=== PATIENT | female | born 1970 | race Caucasian/White ===

== ENCOUNTER 2024-04-10 17:58 | Inpatient (IN) | payer MEDICAID ==
[~2024-04-10] VITALS: Ht 152.4 cm; Wt 59.0 kg
[2024-04-10 18:18] VITALS: BP 112/82; PULSE 69; RESP 18; TEMP 98.3; O2SAT 97
[2024-04-10] MEDS: NACL 0.9% 1,000 ML IV ONE (18:58)
[2024-04-10] MEDS: ONDANSETRON 4 MG/2 ML VIAL IVP ONE (18:58)
[2024-04-10] MEDS: MORPHINE SULFATE 4 MG/ML SYR IVP ONE ×2 (18:59→22:40)
[2024-04-10 19:07] LABS: BASOPHILS % (AUTO) 0.3 % (0.0-2.0); EOSINOPHILS # (AUTO) 0.1 K/uL (0-0.4); HEMATOCRIT 44.4 % (36-48); HEMOGLOBIN 14.9 g/dL (12.0-16.0); LYMPHOCYTES # (AUTO) 1.9 K/uL (2.5-16.5); LYMPHOCYTES % (AUTO) 25.4 % (20.5-51.1); MEAN CORPUSCULAR HEMOGLOBIN 31 pg (27-31); MEAN CORPUSCULAR HGB CONC 34 g/dL (33-37); MEAN CORPUSCULAR VOLUME 92.2 fL (80-94); MONOCYTES # (AUTO) 0.4 K/uL (0.8-1.0); MONOCYTES % (AUTO) 5.9 % (1.7-9.3); NEUTROPHILS # (AUTO) 4.8 K/uL (1.8-7.7); NEUTROPHILS % (AUTO) 66.4 % (42.2-75.2); PLATELET COUNT (AUTO) 216 K/uL (140-450); RED BLOOD CELL COUNT(AUTO) 4.82 MIL/uL (4.20-5.40); RED CELL DISTRIBUTION WIDTH 14.1 % (11.6-13.7); WHITE BLOOD COUNT (AUTO) 7.3 K/uL (4.8-10.8)
[2024-04-10 19:08] LABS: APPEARANCE,URINE CLEAR (CLEAR); BILIRUBIN,URINE NEGATIVE (NEGATIVE); BLOOD, URINE 2+ (NEGATIVE); COLOR,URINE YELLOW (YELLOW); LEUKOCYTE ESTERASE ,URINE NEGATIVE (NEGATIVE); NITRITE, URINE NEGATIVE (NEGATIVE); PROTEIN,URINE NEGATIVE (NEGATIVE); UGLUCOSE NEGATIVE (NEGATIVE); UROBILINOGEN,URINE 0.2 EU/dL (0.2 - 1)
[2024-04-10 19:22] LABS: ANION GAP 8.9 (8-16); CARBON DIOXIDE 29.2 mmol/L (21-32); CREATININE 0.5 mg/dL (0.6-1.3); POTASSIUM 3.1 mmol/L (3.5-5.1)
[2024-04-10 19:26] LABS: ALBUMIN 3.4 g/dL (3.4-5.0); BILIRUBIN,DIRECT 0.1 mg/dL (0.0-0.3); TOTAL BILIRUBIN 0.3 mg/dL (0.0-1.0); TOTAL PROTEIN, SERUM 6.7 g/dL (6.4-8.2)
[2024-04-10 20:02] LABS: FLU A ANTIGEN NEGATIVE (NEGATIVE); FLU B ANTIGEN NEGATIVE (NEGATIVE)
[2024-04-10 20:16] VITALS: O2SAT 99
[2024-04-10] MEDS: KCL 20 MEQ IN 100 mL PREMIX 100 ML IV ONE (20:39)
[2024-04-10] MEDS ORDERED: PIPERACILLIN/TAZOBACTAM 3.375 GM VIAL IV ONE (22:48)
[2024-04-10] MEDS ORDERED: LORazepam 1 MG TAB PO PRN (23:00)
[2024-04-10] MEDS ORDERED: MAGNESIUM OXIDE 400 MG TAB PO PRN (23:00)
[2024-04-10] MEDS ORDERED: ZOLPIDEM 5 MG TAB PO PRN (23:00)
[2024-04-10] MEDS ORDERED: ONDANSETRON 4 MG/2 ML VIAL IVP PRN (23:00)
[2024-04-10] MEDS ORDERED: POTASSIUM CHLORIDE 10 MEQ TABER PO PRN (23:00)
[2024-04-10 23:03] LABS: INR 0.93 (0.8-1.2); PROTHROMBIN TIME 9.8 secs (10.8-13.4)
[2024-04-10] MEDS ORDERED: DEXTROSE 50% 50 ML SYR IVP PRN (23:05)
[2024-04-10] MEDS ORDERED: INSULIN LISPRO SLIDING SCALE 100 UNITS/ML VIAL SUBQ PRN (23:05)
[2024-04-11] MEDS: PIPERACILLIN/TAZOBACTAM 3.375 GM in DEXTROSE 5% 50 ML IV ONE
[2024-04-11] MEDS: HYDROcodone/APAP 5/325 MG 1 TAB TAB PO PRN (00:09)
[2024-04-11] MEDS: NACL 0.9% 1,000 ML IV SCH (00:43)
[2024-04-11 01:16] VITALS: O2SAT 98
[2024-04-11] MEDS ORDERED: PIPERACILLIN/TAZOBACTAM 2.25 GM VIAL IV ONE (05:04)
[2024-04-11] MEDS: PIPERACILLIN/TAZOBACTAM 2.25 GM in DEXTROSE 5% 50 ML IV SCH (05:22)
[2024-04-11 07:10] LABS: BASOPHILS # (AUTO) 0.1 K/uL (0.00-0.22); EOSINOPHILS # (AUTO) 0.1 K/uL (0-0.4); HEMATOCRIT 39.1 % (36-48); HEMOGLOBIN 12.9 g/dL (12.0-16.0); LYMPHOCYTES # (AUTO) 1.5 K/uL (2.5-16.5); LYMPHOCYTES % (AUTO) 24.2 % (20.5-51.1); MEAN CORPUSCULAR HEMOGLOBIN 31 pg (27-31); MEAN CORPUSCULAR HGB CONC 33 g/dL (33-37); MEAN CORPUSCULAR VOLUME 92.8 fL (80-94); MONOCYTES # (AUTO) 0.3 K/uL (0.8-1.0); MONOCYTES % (AUTO) 5.6 % (1.7-9.3); NEUTROPHILS # (AUTO) 4.1 K/uL (1.8-7.7); NEUTROPHILS % (AUTO) 67.2 % (42.2-75.2); PLATELET COUNT (AUTO) 188 K/uL (140-450); RED BLOOD CELL COUNT(AUTO) 4.21 MIL/uL (4.20-5.40)
[2024-04-11 07:29] LABS: ALBUMIN 2.7 g/dL (3.4-5.0); ANION GAP 9.8 (8-16); CARBON DIOXIDE 26.3 mmol/L (21-32); CREATININE 0.4 mg/dL (0.6-1.3); MAGNESIUM 1.7 mg/dL (1.8-2.4); PHOSPHORUS 3.8 mg/dL (2.5-4.9); POTASSIUM 3.1 mmol/L (3.5-5.1); TOTAL BILIRUBIN 0.7 mg/dL (0.0-1.0); TOTAL PROTEIN, SERUM 5.4 g/dL (6.4-8.2)
[2024-04-11 07:30] VITALS: O2SAT 98
[2024-04-11] MEDS: BLOOD GLUCOSE MONITORING 1 DEV DEV FS SCH (07:47)
[2024-04-11] MEDS ORDERED: MORPHINE SULFATE 2 MG/ML SYR ONE (07:47)
[2024-04-11] MEDS: MORPHINE SULFATE 2 MG/ML SYR IVP PRN (07:54)
[2024-04-11 08:05] VITALS: RESP 18; O2SAT 98
[2024-04-11] MEDS ORDERED: ONDANSETRON 4 MG/2 ML VIAL IVP PRN (10:30)
[2024-04-11] MEDS ORDERED: HYDROmorphone 1 MG/ML AMP IVP PRN (10:30)
[2024-04-11] MEDS: LACTATED RINGERS 1,000 ML IV SCH (10:30)
[2024-04-11] MEDS ORDERED: ACETAMINOPHEN 100 ML IV SCH (10:30)
[2024-04-11] MEDS ORDERED: MEPERIDINE 25 MG/ML SYR IVP PRN (10:30)
[2024-04-11] MEDS ORDERED: SEVOFLURANE 250 ML BTL INH ONE (10:51)
[2024-04-11] MEDS: ceFAZolin 2,000 MG VIAL ONE (10:52)
[2024-04-11] MEDS: BUPIVACAINE-MPF 0.25% 30 ML VIAL INJ ONE (10:52)
[2024-04-11] MEDS: MIDAZOLAM 2 MG/2 ML VIAL ONE (10:53)
[2024-04-11] MEDS: fentaNYL citrate 0.05 MG/ML VIAL ONE (10:53)
[2024-04-11] MEDS: SUGAMMADEX SODIUM 200 MG/2 ML VIAL IV ONE (10:53)
[2024-04-11] MEDS: PROPOFOL 200 MG/20 ML VIAL IV ONE (10:54)
[2024-04-11] MEDS: ONDANSETRON 4 MG/2 ML VIAL ONE ×2 (10:54→10:55)
[2024-04-11] MEDS: SUCCINYLCHOLINE CHLORIDE 200 MG/10 ML VIAL IVP ONE (10:54)
[2024-04-11] MEDS: DEXAMETHASONE 4 MG/ML VIAL ONE (10:54)
[2024-04-11] MEDS: ROCURONIUM 50 MG/5 ML VIAL IV ONE ×2 (10:55)
[2024-04-11] MEDS: METOCLOPRAMIDE 10 MG/2 ML INJ VIAL ONE (10:55)
[2024-04-11] MEDS: ATROPINE 0.4 MG/ML VIAL ONE (11:15)
[2024-04-11] MEDS: ePHEDrine 50 MG/ML VIAL ONE (11:25)
[2024-04-11 16:00] VITALS: BP 121/56; PULSE 61; RESP 17; TEMP 97.7; O2SAT 97
[2024-04-11 20:55] VITALS: BP 126/63; PULSE 61; RESP 17; TEMP 97.3; O2SAT 97
[2024-04-12 04:00] VITALS: BP 119/59; PULSE 60; RESP 19; TEMP 97.8; O2SAT 98
[2024-04-12 05:15] LABS: BASOPHILS % (AUTO) 0.1 % (0.0-2.0); EOSINOPHILS % (AUTO) 0.3 % (0.0-4.0); HEMATOCRIT 40.6 % (36-48); HEMOGLOBIN 13.4 g/dL (12.0-16.0); LYMPHOCYTES # (AUTO) 1.3 K/uL (2.5-16.5); LYMPHOCYTES % (AUTO) 20.1 % (20.5-51.1); MEAN CORPUSCULAR HEMOGLOBIN 31 pg (27-31); MEAN CORPUSCULAR HGB CONC 33 g/dL (33-37); MONOCYTES # (AUTO) 0.5 K/uL (0.8-1.0); MONOCYTES % (AUTO) 8.6 % (1.7-9.3); NEUTROPHILS # (AUTO) 4.4 K/uL (1.8-7.7); NEUTROPHILS % (AUTO) 70.9 % (42.2-75.2); PLATELET COUNT (AUTO) 209 K/uL (140-450); RED BLOOD CELL COUNT(AUTO) 4.36 MIL/uL (4.20-5.40); RED CELL DISTRIBUTION WIDTH 13.9 % (11.6-13.7); WHITE BLOOD COUNT (AUTO) 6.2 K/uL (4.8-10.8)
[2024-04-12 05:31] LABS: ALBUMIN 2.6 g/dL (3.4-5.0); ANION GAP 10.3 (8-16); CALCIUM 8.5 mg/dL (8.5-10.1); CARBON DIOXIDE 25.5 mmol/L (21-32); CREATININE 0.4 mg/dL (0.6-1.3); PHOSPHORUS 3.5 mg/dL (2.5-4.9); POTASSIUM 3.8 mmol/L (3.5-5.1); TOTAL BILIRUBIN 0.3 mg/dL (0.0-1.0); TOTAL PROTEIN, SERUM 5.3 g/dL (6.4-8.2)
[2024-04-12 08:00] VITALS: PULSE 65; RESP 18; O2SAT 95
[2024-04-12] MEDS ORDERED: PANT40EC PO (10:59)
[2024-04-12] MEDS ORDERED: IBUP-2213 PO (10:59)
[2024-04-12 12:00] VITALS: BP 133/85; PULSE 65; RESP 18; TEMP 98.3; O2SAT 96
[2024-04-12] MEDS: ACETAMINOPHEN 325 MG TAB PO PRN (12:08)
[2024-04-12 20:00] VITALS: BP 136/67; PULSE 50; PULSE 51; RESP 18; RESP 19; TEMP 97.7; O2SAT 97; O2SAT 98
[2024-04-13 04:00] VITALS: BP 124/55; PULSE 50; RESP 21; TEMP 97.4; O2SAT 97
[2024-04-13 05:20] LABS: BASOPHILS % (AUTO) 0.3 % (0.0-2.0); EOSINOPHILS # (AUTO) 0.1 K/uL (0-0.4); EOSINOPHILS % (AUTO) 1.4 % (0.0-4.0); HEMATOCRIT 36.9 % (36-48); HEMOGLOBIN 12.2 g/dL (12.0-16.0); LYMPHOCYTES # (AUTO) 2.1 K/uL (2.5-16.5); MEAN CORPUSCULAR HEMOGLOBIN 31 pg (27-31); MEAN CORPUSCULAR HGB CONC 33 g/dL (33-37); MEAN CORPUSCULAR VOLUME 92.6 fL (80-94); MONOCYTES # (AUTO) 0.3 K/uL (0.8-1.0); NEUTROPHILS # (AUTO) 2.7 K/uL (1.8-7.7); NEUTROPHILS % (AUTO) 52.3 % (42.2-75.2); PLATELET COUNT (AUTO) 218 K/uL (140-450); RED BLOOD CELL COUNT(AUTO) 3.99 MIL/uL (4.20-5.40); RED CELL DISTRIBUTION WIDTH 13.7 % (11.6-13.7); WHITE BLOOD COUNT (AUTO) 5.1 K/uL (4.8-10.8)
[2024-04-13 05:43] LABS: ALBUMIN 2.5 g/dL (3.4-5.0); CREATININE 0.4 mg/dL (0.6-1.3); MAGNESIUM 1.8 mg/dL (1.8-2.4); PHOSPHORUS 3.2 mg/dL (2.5-4.9); POTASSIUM 3.5 mmol/L (3.5-5.1); TOTAL BILIRUBIN 0.4 mg/dL (0.0-1.0); TOTAL PROTEIN, SERUM 5.1 g/dL (6.4-8.2)
[2024-04-13 05:47] LABS: ANION GAP 9.4 (8-16); CARBON DIOXIDE 27.1 mmol/L (21-32)
[2024-04-13 08:00] VITALS: PULSE 50; RESP 18; O2SAT 98
[2024-04-13 10:15] VITALS: BP 142/73; PULSE 50; RESP 18; TEMP 97.8
== END 2024-04-13 11:11 | disposition home or self-care (01) | DRG 234 ==
LOC: MED 17:58 → EDBD 22:57 → MMU 22:57 → MTU 23:01
PROVIDERS: ADMIT Student in an Organized Health Care Education/Training Program; ATTEND Student in an Organized Health Care Education/Training Program
PROC: 0DTJ4ZZ Resection of Appendix, Percutaneous Endoscopic Approach (ICD-10-PCS; principal; 2024-04-11 08:50)
DX: K35.80 Unspecified acute appendicitis (principal); E44.1 Mild protein-calorie malnutrition; E87.6 Hypokalemia; Z20.822 Contact with and (suspected) exposure to COVID-19; E11.9 Type 2 diabetes mellitus without complications; Z88.8 Allergy status to other drugs, medicaments and biological substances; Z68.25 Body mass index [BMI] 25.0-25.9, adult
CPT/HCPCS: 36415; 71045; 80048; 80053; 80076; 81003; 82948; 83605; 83690; 83735; 84100; 85025; 85610; 86886; 86900; 86901; 87040; 88304; 96365; 96375; 96376; 99291; J0330; J0461; J1100; J1815; J2250; J2270; J2405; J2543; J2704; J2765; J3010; J3480; J3490; J7030; J7060